=== PATIENT | male | born 1965 | race Caucasian/White ===

== ENCOUNTER 2017-08-28 20:08 | Emergency (ER) | payer MEDICAID ==
[~2017-08-28] VITALS: Ht 165.1 cm; Wt 102.1 kg
[~2017-08-28 20:08] MED LIST: CALC-808 PO; FER300L PO; GABA-529 PO; MET10 PO; METH750T3 PO; MULT PO; SOM350 PO; VENL37.587 PO; [UNRECOGNIZED DRUG - OTHER] PO
[2017-08-28 20:13] VITALS: BP_SYST 155
[2017-08-28] MEDS ORDERED: BACITRACIN 1 GM OINT TP ONE ×2 (21:09→21:15)
[2017-08-28] MEDS ORDERED: ACETAMINOPHEN/CODEINE 300 MG-30 MG TABLET PO ONE (21:15)
[2017-08-28 21:30] VITALS: BP_SYST 146
== END 2017-08-28 21:30 | disposition home or self-care (01) ==
LOC: SED 20:08
DX: T22.211A Burn of second degree of right forearm, initial encounter (principal); I10 Essential (primary) hypertension; Z79.899 Other long term (current) drug therapy; Z91.041 Radiographic dye allergy status; X19.XXXA Contact with other heat and hot substances, initial encounter; Y93.89 Activity, other specified; Y92.89 Other specified places as the place of occurrence of the external cause; Y99.8 Other external cause status
CPT/HCPCS: 99284

== ENCOUNTER 2017-08-29 20:46 | Emergency (ER) | payer MEDICAID ==
[~2017-08-29] VITALS: Ht 165.1 cm; Wt 104.3 kg
[2017-08-29 20:59] VITALS: BP_SYST 141
[2017-08-29 22:00] VITALS: BP_SYST 135
== END 2017-08-29 22:01 | disposition home or self-care (01) ==
LOC: SED 20:46
DX: T22.111D Burn of first degree of right forearm, subsequent encounter (principal); L03.113 Cellulitis of right upper limb; I10 Essential (primary) hypertension; Z91.041 Radiographic dye allergy status; Z79.899 Other long term (current) drug therapy; X19.XXXD Contact with other heat and hot substances, subsequent encounter
CPT/HCPCS: 99283

== ENCOUNTER 2018-01-03 17:21 | Emergency (ER) | payer MEDICAID ==
[~2018-01-03] VITALS: Ht 165.1 cm; Wt 104.3 kg
[2018-01-03 17:40] VITALS: BP_SYST 163
--- NOTE | 2018-01-03 18:00 | NUR ---
Patient to ER bed 05 to gown for evaluation. Side rails up.
--- NOTE | 2018-01-03 18:02 | NUR ---
Pt brought by self, A&O x4, pt presents to ER with R knee pain and swelling, diffiulty ambulating , VS WNL, respirations even and unlabored, VS WNL.
--- NOTE | 2018-01-03 18:21 | NUR ---
ER at bedside examining patient.
[2018-01-03] MEDS ORDERED: KETOROLAC TROMETHAMINE 60 MG/2 ML VIAL IM ONE (18:30)
--- NOTE | 2018-01-03 18:40 | NUR ---
Patient has a 1 cm laceration to LLL. Dr Dong applied sutures using sterile technique. Edges well approximated. Site cleansed with . Dressing applied to site. No bleeding noted. Pt tolerated well.
[2018-01-03 18:50] VITALS: BP_SYST 163
--- NOTE | 2018-01-03 18:50 | NUR ---
Patient given written and verbal discharge instructions and verbalizes understanding. ER MD discussed with patient the results and treatment provided. Patient in stable condition. ID arm band removed. Rx of [place] and Motrin given. Patient educated on pain management and to follow up with PMD. Pain Scale 0. Opportunity for questions provided and answered. Medication side effect fact sheet provided.
== END 2018-01-03 18:50 | disposition home or self-care (01) ==
LOC: SED 17:21
DX: G89.29 Other chronic pain (principal); M25.561 Pain in right knee; I10 Essential (primary) hypertension; Z91.041 Radiographic dye allergy status; Z79.899 Other long term (current) drug therapy; Z96.651 Presence of right artificial knee joint
CPT/HCPCS: 73564; 96372; 99284; J1885

== ENCOUNTER 2018-05-04 16:00 | Emergency (ER) | payer MEDICAID ==
[~2018-05-04] VITALS: Ht 162.6 cm; Wt 104.3 kg
[2018-05-04 16:18] VITALS: BP_SYST 157
--- NOTE | 2018-05-04 18:22 | NUR ---
Patient to ER bed 08 to gown for evaluation. Side rails up.
--- NOTE | 2018-05-04 18:23 | NUR ---
Pt AAOx4 ambulated into ED c/o 02/03 pain to R knee s/p falling off ladder. Pt has hx of R knee replacement. Denies numbness/tingling. No other injuries/complaints per pt/noted. Will continue to monitor.
--- NOTE | 2018-05-04 18:24 | NUR ---
ER ERNIE Bowling examining patient.
[2018-05-04] MEDS ORDERED: HYDROcodone/ACETAMIN 7.5-325 MG TAB PO ONE (18:45)
[2018-05-04] MEDS ORDERED: KETOROLAC TROMETHAMINE 60 MG/2 ML VIAL IM ONE (18:45)
--- NOTE | 2018-05-04 18:45 | NUR ---
Carmine wrap & knee immobilizer placed to right knee, patient tolerated well. Patient reports that he does not want the crutches. Crutches not given to patient, Tawnya Cordova AUTH SPECIALIST aware that patient did not get crutches.
--- NOTE | 2018-05-04 19:20 | NUR ---
Patient given written and verbal discharge instructions and verbalizes understanding. ER INSTRUMENTATION FITTER Art discussed with patient the results and treatment provided. Patient in stable condition. ID arm band removed. Rx of Naproxen, [place] given. Patient educated on pain management and to follow up with PMD. Pain Scale 0. Opportunity for questions provided and answered. Medication side effect fact sheet provided.
[2018-05-05 00:09] VITALS: BP_SYST 144
== END 2018-05-05 00:09 | disposition home or self-care (01) ==
LOC: SED 16:00
DX: M25.561 Pain in right knee (principal); I10 Essential (primary) hypertension; Z96.653 Presence of artificial knee joint, bilateral; Z79.899 Other long term (current) drug therapy; Z91.041 Radiographic dye allergy status; W11.XXXA Fall on and from ladder, initial encounter; Y93.89 Activity, other specified; Y92.89 Other specified places as the place of occurrence of the external cause; Y99.8 Other external cause status
CPT/HCPCS: 29505; 73564; 99284; J1885

== ENCOUNTER 2019-05-10 13:50 | Emergency (ER) | payer MEDICAID ==
[~2019-05-10] VITALS: Ht 162.6 cm; Wt 99.8 kg
[2019-05-10 14:10] VITALS: BP_SYST 138
--- NOTE | 2019-05-10 14:21 | NUR ---
Patient to ER [place] 1 to [facility] for evaluation. Side rails up. Report given to Bonnie VILLA.
--- NOTE | 2019-05-10 14:24 | NUR ---
Pt brought by self, ambulatory, A&Ox4, pt presents to ER with headache/dizziness and R wrist pain post fall, pt states he fell downstairs, no KO, skin pink and warm, cap refill <3, VSS, respirations even and unlabored, no open wounds noted.
--- NOTE | 2019-05-10 14:45 | NUR ---
Tawnya Cordova GRANITE SETTER at bedside examining patient
[2019-05-10] MEDS ORDERED: ACETAMINOPHEN 500 MG TABLET PO ONE (15:00)
[2019-05-10] MEDS ORDERED: ACETAMINOPHEN 500 MG TABLET ONE (15:08)
--- NOTE | 2019-05-10 15:30 | NUR ---
Pt A&Ox4, VSS, respirations even and unlabored
[2019-05-10 16:54] VITALS: BP_SYST 132
--- NOTE | 2019-05-10 16:55 | NUR ---
Patient given written and verbal discharge instructions and verbalizes understanding. ER MD discussed with patient the results and treatment provided. Patient in stable condition. ID arm band removed. Rx of Motrin given. Patient educated on pain management and to follow up with PMD. Pain Scale 2/10 tolerable for pt. Opportunity for questions provided and answered. Medication side effect fact sheet provided.
== END 2019-05-10 16:54 | disposition home or self-care (01) ==
LOC: SED 13:50
DX: S16.1XXA Strain of muscle, fascia and tendon at neck level, initial encounter (principal); S63.501A Unspecified sprain of right wrist, initial encounter; S09.8XXA Other specified injuries of head, initial encounter; I10 Essential (primary) hypertension; Z79.899 Other long term (current) drug therapy; Z88.8 Allergy status to other drugs, medicaments and biological substances; W10.9XXA Fall (on) (from) unspecified stairs and steps, initial encounter; Y93.89 Activity, other specified; Y92.098 Other place in other non-institutional residence as the place of occurrence of the external cause; Y99.8 Other external cause status
CPT/HCPCS: 70450-TC; 72125-TC; 99284

== ENCOUNTER 2020-06-18 15:52 | Emergency (ER) | payer MEDICAID ==
[~2020-06-18] VITALS: Ht 162.6 cm; Wt 102.1 kg
[2020-06-18 15:52] VITALS: BP_SYST 149
--- NOTE | 2020-06-18 16:40 | NUR ---
Patient to ER bed 7 to gown for evaluation. Side rails up.
--- NOTE | 2020-06-18 16:40 | NUR ---
Pt came to ER for R ft bump x2 years pt states it has grown in size over the last 3 months and hardened in the last 2 weeks, rates pain 5/10. Pt resting in runion, no distress noted, VSS.
--- NOTE | 2020-06-18 16:50 | NUR ---
ER at bedside examining patient.
--- NOTE | 2020-06-18 18:22 | NUR ---
Pt in H1 resting, no distress noted, stable at this time.
[2020-06-18 18:37] VITALS: BP_SYST 149
--- NOTE | 2020-06-18 18:40 | NUR ---
Patient given written and verbal discharge instructions and verbalizes understanding. DR. SISSY WALLACE MD discussed with patient the results and treatment provided. Patient in stable condition. ID arm band removed. Rx of [place] given. Patient educated on pain management and to follow up with PMD. Pain Scale 0/10. Opportunity for questions provided and answered. Medication side effect fact sheet provided.
== END 2020-06-18 18:37 | disposition home or self-care (01) ==
LOC: SED 15:52
DX: M79.672 Pain in left foot (principal); I10 Essential (primary) hypertension; Z79.899 Other long term (current) drug therapy; Z88.8 Allergy status to other drugs, medicaments and biological substances
CPT/HCPCS: 99283

== ENCOUNTER 2020-10-29 14:09 | Emergency (ER) | payer MEDICAID ==
[~2020-10-29] VITALS: Ht 157.5 cm; Wt 64.4 kg
[~2020-10-29 14:09] MED LIST changes: +METH-634 PO; -METH750T3 PO
[2020-10-29 14:18] VITALS: BP_SYST 129
[2020-10-29] MEDS ORDERED: AMOX-426 PO (14:41)
[2020-10-29] MEDS: AMOXICILLIN/CLAVULANATE POTASSIUM 875 MG TABLET PO ONE (14:41)
[2020-10-29] MEDS ORDERED: DIPH-TET-PERTUS Vaccine 0.5 ML VIAL (ADACEL) I.M. ONE (14:44)
[2020-10-29] MEDS: DIPH-TET-PERTUS Vaccine 0.5 ML VIAL (ADACEL) I.M. ONE (14:44)
[2020-10-29 15:51] VITALS: BP_SYST 129
== END 2020-10-29 15:51 | disposition home or self-care (01) ==
LOC: SED 14:09
DX: S61.451A Open bite of right hand, initial encounter (principal); I10 Essential (primary) hypertension; Z79.899 Other long term (current) drug therapy; Z88.8 Allergy status to other drugs, medicaments and biological substances; W54.0XXA Bitten by dog, initial encounter; Y93.89 Activity, other specified; Y92.89 Other specified places as the place of occurrence of the external cause; Y99.8 Other external cause status
CPT/HCPCS: 90715; 99283

== ENCOUNTER 2023-01-03 13:50 | Emergency (ER) | payer MEDICAID ==
[~2023-01-03] VITALS: Ht 162.6 cm; Wt 106.6 kg
[~2023-01-03 13:50] MED LIST changes: +AMOX-426 PO; -MET10 PO; +METH-797 PO
[2023-01-03 13:57] VITALS: BP_SYST 137
--- NOTE | 2023-01-03 14:05 | NUR ---
Patient triaged and placed in CHAIR 1. VSS and patient appears in no acute distress at this time.
--- NOTE | 2023-01-03 14:08 | NUR ---
ER at bedside examining patient.
--- NOTE | 2023-01-03 14:11 | NUR ---
PT BIB SELF AFTER BUCKLING RIGHT ANKLE TO PREVENT FROM FALLING AFTER ALMOST SLIPPING ON WATER. PT RIGHT AND LEFT ANKLE DOES APPER SWOLLEN NO ERYTHEMA NOTED. PULSES +1 AND CAP REFIL IS LESS THEN 3 SECONDS ON BOTH FEET. PT IS COMPLAINING OF 8/10 PAIN. PT DENIES SOB, N/V/D AND URINARY OR BOWEL ISSUES. PT IS AOX4. PT IS IN CHAIR 1.
[2023-01-03] MEDS ORDERED: IBUPROFEN 800 MG TABLET PO ONE (15:00)
--- NOTE | 2023-01-03 15:01 | NUR ---
PT COMPLAINING OF 7/ 10 PAIN MOTRIN 800 MG GIVEN PO PER MD ORDERS. PT TOLERATED WELL.
[2023-01-03] MEDS ORDERED: IBUP-1971 PO (15:12)
[2023-01-03] MEDS ORDERED: TRAM50TA2 PO (15:12)
--- NOTE | 2023-01-03 15:38 | NUR ---
Patient given written and verbal discharge instructions and verbalizes understanding. ER MD discussed with patient the results and treatment provided. Patient in stable condition. ID arm band removed. Rx of MOTRIN, TR[place]OL given. Patient educated on pain management and to follow up with PMD. Pain Scale . Opportunity for questions provided and answered. Medication side effect fact sheet provided.
[2023-01-03 15:39] VITALS: BP_SYST 138
== END 2023-01-03 15:38 | disposition home or self-care (01) ==
LOC: SED 13:50
DX: S93.601A Unspecified sprain of right foot, initial encounter (principal); I10 Essential (primary) hypertension; Z91.041 Radiographic dye allergy status; Z79.899 Other long term (current) drug therapy; W01.0XXA Fall on same level from slipping, tripping and stumbling without subsequent striking against object, initial encounter; Y93.89 Activity, other specified; Y92.89 Other specified places as the place of occurrence of the external cause; Y99.8 Other external cause status
CPT/HCPCS: 99283

== ENCOUNTER 2023-03-31 12:48 | Emergency (ER) | payer MEDICAID ==
[~2023-03-31] VITALS: Ht 162.6 cm; Wt 104.3 kg
[~2023-03-31 12:48] MED LIST changes: +IBUP-1971 PO; +TRAM50TA2 PO
[2023-03-31 12:52] VITALS: BP_SYST 148; PULSE 96; RESP 22; TEMP 98.4; O2SAT 93
[2023-03-31] MEDS ORDERED: ALBUTEROL SULFATE 0.083% 2.5 MG/3 ML VIAL.NEB INH ONE (13:15)
[2023-03-31] MEDS ORDERED: NACL 0.9% 1,000 ML IV ONE (13:15)
[2023-03-31] MEDS ORDERED: IPRATROPIUM BROM 0.5 MG/2.5 ML VIAL.NEB (ATROVENT) INH ONE (13:15)
[2023-03-31 13:58] LABS: BASOPHILS % (AUTO) 0.2 % (0.0-2.0); EOSINOPHILS # (AUTO) 0.1 K/uL (0.0-0.4); EOSINOPHILS % (AUTO) 0.5 % (0.0-4.0); HEMATOCRIT 37.5 % (36-54); HEMOGLOBIN 12.1 g/dL (14.0-18.0); LYMPHOCYTES # (AUTO) 1.7 K/uL (1.0-5.5); LYMPHOCYTES % (AUTO) 14.9 % (20.5-51.5); MEAN CORPUSCULAR HEMOGLOBIN 27 pg (27-31); MEAN CORPUSCULAR HGB CONC 32 % (32-36); MEAN CORPUSCULAR VOLUME 85 fL (79.0-98.0); MONOCYTES # (AUTO) 0.5 K/uL (0.0-1.0); MONOCYTES % (AUTO) 4.3 % (1.7-9.3); NEUTROPHILS # (AUTO) 9.3 K/uL (1.8-7.7); NEUTROPHILS % (AUTO) 80.1 % (40.0-70.0); PLATELET COUNT (AUTO) 173 K/uL (130-430); RED BLOOD CELL COUNT(AUTO) 4.44 MIL/uL (4.2-6.2); RED CELL DISTRIBUTION WIDTH 16.2 % (9.0-15.0); WHITE BLOOD COUNT (AUTO) 11.6 K/uL (4.8-10.8)
[2023-03-31 14:09] LABS: ANION GAP 7 (5-15); CALCIUM 9.1 mg/dL (8.4-11.0); CARBON DIOXIDE 29 mmol/L (23-29); CHLORIDE 101 mmol/L (98-107); CREATININE 0.88 mg/dL (0.55-1.30); GFR AFRICAN AMERICAN 114 mL/min (>90); GLUCOSE 120 mg/dL (74-106); SODIUM SERUM 137 mmol/L (136-145); UREA NITROGEN, BLOOD 18 mg/dL (8-21)
[2023-03-31 14:11] LABS: GFR NON AFRICAN-AMERICAN 94 mL/min (>90)
[2023-03-31 14:16] LABS: ALANINE AMINOTRANSFERASE 13 U/L (12-78); ALBUMIN 3.1 g/dL (3.4-4.8); ASPARTATE AMINOTRANSFERASE 14 U/L (10-37); TOTAL BILIRUBIN 0.6 mg/dL (0.0-1.0); TOTAL PROTEIN, SERUM 6.7 g/dL (6.4-8.3)
[2023-03-31 14:20] LABS: BLOOD GAS PCO2 34.8 mmHg (32.0-45.0); BLOOD GAS PH 7.432 (7.350-7.450); BLOOD GAS PO2 62.7 mmHg (75.0-100.0)
[2023-03-31 14:21] LABS: ABG O2 SAT% ESTIMATE 92.8 % (94.0-100.0); ALLEN'S TEST POSITIVE (P); BLOOD GAS BASE EXCESS -0.9 mmol/L (-3.0-3.0); BLOOD GAS HCO3 22.7 mmol/L (21.0-27.0)
[2023-03-31] MEDS ORDERED: ZIT250 PO ×2 (14:47→16:11)
[2023-03-31] MEDS ORDERED: PRED20TA PO ×2 (14:47→16:11)
[2023-03-31 15:35] VITALS: BP_SYST 117; PULSE 84; RESP 18; TEMP 99.1; O2SAT 95
[2023-03-31 16:48] LABS: INFLUENZA TYPE A negative (NEGATIVE); INFLUENZA TYPE B NEGATIVE (NEGATIVE)
== END 2023-03-31 15:35 | disposition home or self-care (01) ==
LOC: SED 12:48
DX: J45.909 Unspecified asthma, uncomplicated (principal); R05.9 Cough, unspecified; R06.02 Shortness of breath; R07.9 Chest pain, unspecified; I10 Essential (primary) hypertension; Z91.041 Radiographic dye allergy status; Z79.899 Other long term (current) drug therapy; Z20.822 Contact with and (suspected) exposure to COVID-19
CPT/HCPCS: 36415; 36600; 71045; 80053; 82803; 83605; 84484; 85025; 87040; 93005; 94640; 99285

== ENCOUNTER 2023-06-27 09:16 | Day surgery (SDC) | payer MEDICAID ==
[~2023-06-27] VITALS: Ht 162.6 cm; Wt 106.6 kg
[~2023-06-27 09:16] MED LIST changes: +PRED20TA PO; +ZIT250 PO
[2023-06-27 11:51] VITALS: O2SAT 96
[2023-06-27] MEDS ORDERED: LIDOCAINE/EPI 1% 1:100000 20 ML VIAL ONE (12:48)
[2023-06-27] MEDS ORDERED: MIDAZOLAM HCL/PF 2 MG/2 ML SYRINGE ONE (12:48)
[2023-06-27] MEDS ORDERED: SUGAMMADEX SODIUM 200 MG/2 ML VIAL IV ONE (12:48)
[2023-06-27] MEDS ORDERED: DEXAMETHASONE SOD PHOSPHATE 4 MG/ML VIAL ONE (12:48)
[2023-06-27] MEDS ORDERED: DESFLURANE 15 MIN GAS INH ONE (12:48)
[2023-06-27] MEDS ORDERED: fentaNYL CITRATE/PF 100 MCG/2 ML AMP ONE (12:48)
[2023-06-27] MEDS ORDERED: LIDOCAINE 2%, 20 ML MDV ONE (12:48)
[2023-06-27] MEDS ORDERED: PROPOFOL 200MG/ 20ML VIAL (DIPRIVAN) IV ONE (12:48)
[2023-06-27] MEDS ORDERED: ACETAMINOPHEN I.V. 1000 MG 100 ML IV ONE (12:49)
[2023-06-27] MEDS ORDERED: hydrALAZINE HCL 20 MG/ML VIAL IVP PRN (13:45)
[2023-06-27] MEDS ORDERED: METOCLOPRAMIDE HCL 10 MG/2 ML VIAL IVP PRN (13:45)
[2023-06-27] MEDS ORDERED: MEPERIDINE HCL/PF 25 MG/ML DISP.SYRIN IVP PRN (13:45)
[2023-06-27] MEDS ORDERED: HYDROmorphone 1 MG/ML INJ. CARTRIDGE IVP PRN ×2 (13:45)
[2023-06-27] MEDS ORDERED: LABETALOL 100 MG/ 20ML VIAL IVP PRN (13:45)
[2023-06-27] MEDS ORDERED: MIDAZOLAM HCL 2 MG/2 ML VIAL (VERSED) IVP PRN (13:45)
[2023-06-27] MEDS ORDERED: LR 1,000 ML IV SCH (13:45)
[2023-06-27] MEDS ORDERED: HYDROmorphone 1 MG/ML INJ. CARTRIDGE ONE (16:52)
[2023-06-27 17:41] VITALS: BP_SYST 124; PULSE 86; RESP 17
== END 2023-06-27 17:38 | disposition home or self-care (01) ==
LOC: SDS 09:16 → SMU 09:20 → SDS 17:38
PROVIDERS: ATTEND Otolaryngology
DX: D38.5 Neoplasm of uncertain behavior of other respiratory organs (principal); J34.2 Deviated nasal septum; J34.3 Hypertrophy of nasal turbinates; I10 Essential (primary) hypertension; E66.9 Obesity, unspecified; G47.33 Obstructive sleep apnea (adult) (pediatric); G62.9 Polyneuropathy, unspecified; Z79.899 Other long term (current) drug therapy; Z96.653 Presence of artificial knee joint, bilateral; Z68.39 Body mass index [BMI] 39.0-39.9, adult
CPT/HCPCS: 31256; 88304; 88311; 30140; 30520; J3490; J1100; J2001; J3465; J2704; J3010; J1170; C1726; J0131

== ENCOUNTER 2023-09-10 15:34 | Emergency (ER) | payer MEDICAID ==
[~2023-09-10] VITALS: Ht 165.1 cm; Wt 106.6 kg
[2023-09-10 15:44] VITALS: BP_SYST 137; PULSE 81; RESP 18; TEMP 98.4; O2SAT 98
[2023-09-10] MEDS: BACITRACIN 1 GM OINT TP ONE (17:11)
[2023-09-10 17:16] VITALS: BP_SYST 137; PULSE 81; RESP 18; TEMP 98.4; O2SAT 98
== END 2023-09-10 17:16 | disposition home or self-care (01) ==
LOC: SED 15:34
DX: S90.822A Blister (nonthermal), left foot, initial encounter (principal); I10 Essential (primary) hypertension; Z88.5 Allergy status to narcotic agent; Z88.8 Allergy status to other drugs, medicaments and biological substances; Z79.899 Other long term (current) drug therapy; X58.XXXA Exposure to other specified factors, initial encounter; Y93.89 Activity, other specified; Y92.89 Other specified places as the place of occurrence of the external cause; Y99.8 Other external cause status
CPT/HCPCS: 99282

== ENCOUNTER 2023-09-23 18:49 | Emergency (ER) | payer MEDICAID ==
[~2023-09-23] VITALS: Ht 165.1 cm; Wt 106.6 kg
[2023-09-23 19:24] VITALS: BP_SYST 109; PULSE 102; RESP 20; TEMP 97.7; O2SAT 96
[2023-09-23] MEDS ORDERED: NAPR-690 PO (20:49)
[2023-09-23] MEDS ORDERED: CEPH-548 PO (20:49)
[2023-09-23] MEDS: KETOROLAC TROMETHAMINE 30 MG VIAL IM ONE (20:58)
[2023-09-23 21:13] VITALS: BP_SYST 97; PULSE 90; RESP 16; TEMP 98.2; O2SAT 94
== END 2023-09-23 21:13 | disposition home or self-care (01) ==
LOC: SED 18:49
DX: L03.116 Cellulitis of left lower limb (principal); I10 Essential (primary) hypertension; Z91.041 Radiographic dye allergy status; Z79.899 Other long term (current) drug therapy
CPT/HCPCS: 99283; 96372; 82948; J1885